=== PATIENT | female | born 1980 | race Caucasian/White ===

== ENCOUNTER 2016-11-01 23:37 | Emergency (ER) | payer OTHER ==
[~2016-11-01 23:37] MED LIST: MINOCIN100 M1 PO; PRENATAL VITAMI; PROTONIX40 MG
[2016-11-02] MEDS ORDERED: NORCO 5-325 TA1 EACH PO (02:32)
== END 2016-11-02 02:40 ==
LOC: EDMED 23:37
DX: S00.81XA Abrasion of other part of head, initial encounter (principal); W01.0XXA Fall on same level from slipping, tripping and stumbling without subsequent striking against object, initial encounter; Y92.410 Unspecified street and highway as the place of occurrence of the external cause